=== PATIENT | male | born 1950 | race Caucasian/White ===

== ENCOUNTER 2017-08-17 16:17 | Emergency (ER) | payer OTHER ==
[~2017-08-17] VITALS: Ht 160 cm; Wt 77.1 kg
--- NOTE | 2017-08-17 16:40 | NUR ---
PT SUMMER FROM HOME TO ER BED 10. 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 STATES HE IS CONSTIPATED. GOWNED AND PLACED ON MONITOR. NAD NOTED. AWAITING MD GARZA.
--- NOTE | 2017-08-17 17:15 | NUR ---
DR BRIGHT AT BEDSIDE FOR EVAL.
[2017-08-17 17:28] LABS: BASOPHILS % (AUTO) 0.3 % (0.0-2.0); EOSINOPHILS % (AUTO) 0.1 % (0.0-6.0); HEMATOCRIT 40 % (39-51); HEMOGLOBIN 13.5 g/dL (13.5-17.5); LYMPHOCYTES # (AUTO) 0.6 /CMM (0.8-4.8); LYMPHOCYTES % (AUTO) 5.2 % (20.0-44.0); MEAN CORPUSCULAR HEMOGLOBIN 29 PG (26.0-33.0); MEAN CORPUSCULAR HGB CONC 34 g/dl (31.0-36.0); MEAN CORPUSCULAR VOLUME 87 fL (80-96); MONOCYTES # (AUTO) 0.5 /CMM (0.1-1.30); MONOCYTES % (AUTO) 4.3 % (2.0-12.0); NEUTROPHILS # (AUTO) 10.1 /CMM (1.8-8.9); NEUTROPHILS % (AUTO) 90.1 % (43.0-81.0); PLATELET COUNT (AUTO) 276 /CMM (150-450); RDW COEFFICIENT OF VARIATION 13.8 (11.5-15.0); WHITE BLOOD COUNT (AUTO) 11.3 K/uL (4.3-11.0)
[2017-08-17] MEDS ORDERED: NA PHOS,M-B/NA PHOS,DI-BA 1 EA ENEMA RC ONE ×2 (17:30→18:10)
[2017-08-17] MEDS ORDERED: ONDANSETRON HCL/PF 4 MG/2 ML VIAL IVP ONE (17:30)
[2017-08-17] MEDS ORDERED: HYDROMORPHONE INJ 2 MG/ML DISP.SYRIN IV ONE (17:30)
[2017-08-17] MEDS ORDERED: BISACODYL SUPP (10 MG) 10 MG/SUPP.RECT SUPP.RECT RC ONE ×2 (17:30→18:09)
[2017-08-17 17:39] LABS: CALCIUM, SERUM 10.1 mg/dL (8.5-10.1); CREATININE 1.8 mg/dL (0.6-1.3)
[2017-08-17 17:59] LABS: ALBUMIN 4.6 g/dL (3.4-5.0); BILIRUBIN,DIRECT 0.2 mg/dL (0.0-0.2); BILIRUBIN,TOTAL 0.7 mg/dL (0.2-1.0); TOTAL PROTEIN, SERUM 8.5 g/dL (6.4-8.2)
[2017-08-17] MEDS ORDERED: HYDROMORPHONE 1 MG/1 ML DISP.SYRIN ONE (18:08)
[2017-08-17] MEDS ORDERED: ONDANSETRON HCL/PF 4 MG/2 ML VIAL ONE (18:09)
--- NOTE | 2017-08-17 18:10 | NUR ---
PT OT RADIOLOGY FOR ABDOMINAL CT SCAN VIA WHEELCHAIR
--- NOTE | 2017-08-17 19:10 | NUR ---
PT ABLE TO GO TO THE BATHROOM. BM SUCCESSFUL. PT STATES FEELS MUCH BETTER.
--- NOTE | 2017-08-17 20:20 | NUR ---
Patient discharged to home in stable condition. Written and verbal after care instructions given. Patient verbalizes understanding of instruction.IV removed. Catheter intact and site benign. Pressure and 4x4 applied to site. No bleeding noted.
[2017-08-17 20:21] VITALS: BP 126/84
[2017-08-17] MEDS ORDERED: POTASSIUM CHLORIDE 20 MEQ TAB.PRT.SR PO ONE (21:00)
== END 2017-08-17 20:21 | disposition home or self-care (01) ==
LOC: ER 16:19
DX: K59.09 Other constipation (principal); E87.6 Hypokalemia; I10 Essential (primary) hypertension; N20.0 Calculus of kidney; G89.4 Chronic pain syndrome; R79.89 Other specified abnormal findings of blood chemistry
CPT/HCPCS: 36415; 80048-TC; 80076-TC; 83690-TC; 85025-TC; A4606; J1170; J2405; Z7610

== ENCOUNTER 2020-01-02 19:15 | Emergency (ER) | payer OTHER ==
[~2020-01-02] VITALS: Ht 170.2 cm; Wt 77.1 kg
[2020-01-02] MEDS: POTASSIUM CL. PREMIX PERIPHER. 50 ML IV SCH ×4 (00:40→23:17)
--- NOTE | 2020-01-02 19:25 | NUR ---
PT SUMMER FROM HOME D/T "NOT BEING HIMSELF" PER NEPHEW AFTER HE LOCKED HIMSELF AT HOME AND HAD MULTIPLE FALLS. IN ADDITION TO THAT, PT APPARENTLY, HAS NOT TAKEN ANY OF HIS MEDICATIONS AT HOME PER REPORT. PT AAOX4, NO MEDICAL COMPLAINTS AT THIS TIME. VSS. PT CONNECTED TO THE PRICING STRATEGIST AND POX.
--- NOTE | 2020-01-02 19:25 | NUR ---
PT DENIES SI/HI
--- NOTE | 2020-01-02 19:31 | NUR ---
PT CHANDRAKANT DE PAZ
[2020-01-02 19:50] LABS: CALCIUM, SERUM 8.7 mg/dL (8.5-10.1); CARBON DIOXIDE 29 mmol/L (21-32); CHLORIDE 102 mmol/L (98-107); CREATININE 1.5 mg/dL (0.6-1.3); GLUCOSE 130 mg/dL (74-106); SODIUM SERUM 139 mmol/L (136-145); UREA NITROGEN, BLOOD 27 mg/dL (7-18)
[2020-01-02 19:51] LABS: POTASSIUM 2.8 mmol/L (3.5-5.1)
[2020-01-02 19:53] LABS: BASOPHILS % (AUTO) 0.1 % (0.0-2.0); EOSINOPHILS % (AUTO) 0.8 % (0.0-6.0); HEMATOCRIT 38 % (39-51); HEMOGLOBIN 12.6 g/dL (13.5-17.5); LYMPHOCYTES % (AUTO) 8.4 % (20.0-44.0); MEAN CORPUSCULAR HGB CONC 33 g/dl (31.0-36.0); MEAN CORPUSCULAR VOLUME 88 fL (80-96); MONOCYTES # (AUTO) 0.8 /CMM (0.1-1.30); MONOCYTES % (AUTO) 6.7 % (2.0-12.0); NEUTROPHILS # (AUTO) 10.3 /CMM (1.8-8.9); PLATELET COUNT (AUTO) 244 /CMM (150-450); RED BLOOD CELL COUNT(AUTO) 4.29 MIL/uL (4.5-6.0); WHITE BLOOD COUNT (AUTO) 12.2 K/uL (4.3-11.0)
[2020-01-02 19:56] LABS: ALANINE AMINOTRANSFERASE 18 U/L (12-78); ALKALINE PHOSPHATASE 89 U/L (46-116); ASPARTATE AMINOTRANSFERASE 20 U/L (15-37); BILIRUBIN,DIRECT 0.3 mg/dL (0.0-0.2); BILIRUBIN,TOTAL 1.2 mg/dL (0.2-1.0)
[2020-01-02 19:57] LABS: ACETAMINOPHEN < 2 ug/ml (10-30); ALBUMIN 4.1 g/dL (3.4-5.0); ALCOHOL, BLOOD < 3 mg/dL (0-0); SALICYLATE < 2.8 mg/dL (2.8-20.0); TOTAL PROTEIN, SERUM 6.9 g/dL (6.4-8.2)
[2020-01-02] MEDS ORDERED: POTASSIUM CL. PREMIX PERIPHER. 200 ML ONE (20:20)
[2020-01-02] MEDS ORDERED: IV NS 0.9% 1,000 ML IV ONE (20:30)
--- NOTE | 2020-01-02 20:51 | NUR ---
ULTRASOUND AT BEDSIDE IN PROGRESS
--- NOTE | 2020-01-02 21:00 | NUR ---
PT UNABLE TO PROVIDE URINE AT THIS TIME. MADE AWARE
--- NOTE | 2020-01-02 21:10 | NUR ---
PT TAKEN TO CT
[2020-01-02] MEDS ORDERED: MAGNESIUM OXIDE 400 MG TABLET PO ONE (22:00)
[2020-01-02] MEDS ORDERED: MAGNESIUM OXIDE 400 MG TABLET ONE (22:31)
--- NOTE | 2020-01-02 22:53 | NUR ---
PAGED DANITZA EMERSONP
--- NOTE | 2020-01-02 23:04 | NUR ---
OSITO VERMA SPOKE TO [facility].
[2020-01-02] MEDS ORDERED: LORAZEPAM INJ 2 MG/ML VIAL ONE (23:05)
[2020-01-02] MEDS ORDERED: LORAZEPAM INJ 2 MG/ML VIAL IV ONE (23:30)
--- NOTE | 2020-01-03 00:14 | NUR ---
[facility] CALLED INQUIRING IF PT WAS SWABBED FOR COVID, MADE AWARE THAT NO ORDER FOR COVID TESTING.
--- NOTE | 2020-01-03 00:57 | NUR ---
CALLED [facility] REHARDING TRANSFER INFO, [place] [employer] STATES "PT WILL BE GOING TO [facility] BUT STILL AWAITING FOR BED AND WILL CALL BACK FOR MORE INFO".
--- NOTE | 2020-01-03 01:14 | NUR ---
TRANSFER INFO:[facility] TELE [id number]: COLEEN PATRICK 60-90 MINS ETA
--- NOTE | 2020-01-03 01:27 | NUR ---
REPORT GIVEN TO JERMAIN MENDOZA, [facility]
[2020-01-03 01:55] VITALS: BP 119/94
--- NOTE | 2020-01-03 01:55 | NUR ---
REPORT GIVEN TO EMS. PT STABLE FOR TRANSFER
== END 2020-01-03 02:32 | disposition short-term general hospital (02) ==
LOC: ER 19:18
DX: R45.1 Restlessness and agitation (principal); E86.0 Dehydration; N17.9 Acute kidney failure, unspecified; E87.6 Hypokalemia; E83.42 Hypomagnesemia; R94.5 Abnormal results of liver function studies; D64.9 Anemia, unspecified; I25.10 Atherosclerotic heart disease of native coronary artery without angina pectoris; M54.5 Low back pain; G89.29 Other chronic pain; R41.82 Altered mental status, unspecified; I10 Essential (primary) hypertension; Z95.0 Presence of cardiac pacemaker; Z98.890 Other specified postprocedural states
CPT/HCPCS: 36415; 70450; 71045; 72125; 74176; 76705; 80048; 80076; 80307; 80329; 83735; 85025; 93005; 96365; 96366; 96375; 99285; G0480; J2060; J3480; J7030; J7040

== ENCOUNTER 2021-12-31 01:13 | Emergency (ER) | payer OTHER ==
[~2021-12-31] VITALS: Ht 182.9 cm; Wt 78.5 kg
--- NOTE | 2021-12-31 01:36 | NUR ---
TO ER BED 4. [id number] FROM HOME C/O CHRONIC BACK PAIN AND KNEE PAIN. ALSO GOUT FLARE UP, NOT RELIEVED BY PRESCRIBED MEDS. PT AAOX4. NORMALLY AMBULATORY BUT IS UNBLE TODAY BECAUSE OF PAIN. JOINTS NOTICEABLY SWOLLEN ON BILATERAL HANDS. CONNECTED TO MONITOR. AWAITING MD GARZA
[2021-12-31] MEDS ORDERED: HYDROCODONE/APAP 10/325MG TABLET ONE (03:07)
[2021-12-31] MEDS: HYDROCODONE/APAP 10/325MG TABLET PO ONE (03:11)
[2021-12-31 03:19] LABS: BASOPHILS # (AUTO) 0.1 K/uL (0.0-0.2); BASOPHILS % (AUTO) 0.4 % (0.0-2.0); HEMATOCRIT 30 % (39-51); HEMOGLOBIN 9.3 g/dL (13.5-17.5); LYMPHOCYTES # (AUTO) 0.5 K/uL (0.8-4.8); LYMPHOCYTES % (AUTO) 3.1 % (20.0-44.0); MEAN CORPUSCULAR HGB CONC 31 g/dl (31.0-36.0); MEAN CORPUSCULAR VOLUME 72 fL (80-96); MONOCYTES # (AUTO) 1.2 K/uL (0.1-1.30); MONOCYTES % (AUTO) 7.6 % (2.0-12.0); NEUTROPHILS # (AUTO) 13.8 K/uL (1.8-8.9); NEUTROPHILS % (AUTO) 88.9 % (43.0-81.0); PLATELET COUNT (AUTO) 254 K/uL (150-450); RED BLOOD CELL COUNT(AUTO) 4.09 MIL/uL (4.5-6.0); WHITE BLOOD COUNT (AUTO) 15.5 K/uL (4.3-11.0)
[2021-12-31 03:27] LABS: CALCIUM, SERUM 8.1 mg/dL (8.5-10.1); CARBON DIOXIDE 22 mmol/L (21-32); CHLORIDE 105 mmol/L (98-107); CREATININE 1.8 mg/dL (0.6-1.3); GLUCOSE 127 mg/dL (74-106); POTASSIUM 2.9 mmol/L (3.5-5.1); SODIUM SERUM 138 mmol/L (136-145); UREA NITROGEN, BLOOD 30 mg/dL (7-18)
[2021-12-31] MEDS ORDERED: POTASSIUM CHLORIDE 20 MEQ TAB.PRT.SR PO ONE (04:35)
[2021-12-31] MEDS: POTASSIUM CHLORIDE 20 MEQ TAB.PRT.SR PO ONE (04:42)
[2021-12-31] MEDS: IV NS 0.9% 1,000 ML IV ONE (04:42)
[2021-12-31] MEDS ORDERED: HYDR-4275 PO ×2 (05:02→05:05)
[2021-12-31 05:20] VITALS: BP 141/70
--- NOTE | 2021-12-31 05:20 | NUR ---
Patient discharged to home in stable condition. Written and verbal after care instructions given. Patient verbalizes understanding of instruction.
== END 2021-12-31 05:20 | disposition home or self-care (01) ==
LOC: ER 01:14
DX: M10.9 Gout, unspecified (principal); I12.9 Hypertensive chronic kidney disease with stage 1 through stage 4 chronic kidney disease, or unspecified chronic kidney disease; N18.9 Chronic kidney disease, unspecified; E87.6 Hypokalemia; Z79.899 Other long term (current) drug therapy
CPT/HCPCS: 36415; 80048; 83735; 85025; 96360; 99283; J7030